=== PATIENT | male | born 1965 | race Caucasian/White ===

== ENCOUNTER 2016-11-14 09:53 | Day surgery (SDC) | payer BC ==
[~2016-11-14] VITALS: Ht 193 cm; Wt 102.1 kg
[~2016-11-14 09:53] MED LIST: NEURONTIN100 MG PO; PAXIL10 MG PO; TENORMIN25 MG PO
== END 2016-11-14 12:10 | disposition home or self-care (01) ==
LOC: PAIN 09:53 → SDC 10:45 → PAIN 10:45
DX: M54.16 Radiculopathy, lumbar region (principal); I10 Essential (primary) hypertension
CPT/HCPCS: J1100; J2250; J3010